=== PATIENT | female | born 1965 | race Caucasian/White ===

== ENCOUNTER → 2020-07-03 17:29 | Outpatient (CLI) | payer BC, SELFPAY ==
--- NOTE | ~2020-07-03 | XR_ITS ---
EXAMINATION: XR sacroiliac joints min 3V DATE: 07/03/2020 18:53 INDICATION: Sacroiliac joint pain TECHNIQUE: AP and left and right oblique views of the sacroiliac joints were obtained. COMPARISON: None. FINDINGS: Nonuniform joint space narrowing at the sacrum and joints, mild on the left and mild to moderate on t he right. No subarticular sclerosis or erosions at the sacral joints to suggest an inflammatory sacro iliitis. Sacral arches are intact. No fracture. Bilateral hip joint spaces are normal. Severe lower l umbar facet osteoarthritis. IMPRESSION: 1. Mild left and mild to moderate right sacroiliac osteoarthritis. Reviewed, dictated and finalized at location A. ALE SECURITY OFFICER
--- NOTE | ~2020-07-03 | MR_ITS ---
EXAMINATION: MR lumbar spine wo con DATE: 07/03/2020 18:23 INDICATION: Lumbar radiculopathy. TECHNIQUE: Magnetic resonance imaging (MRI) of the lumbar spine was performed without intravenous con trast. Sequences included sagittal T2-weighted FSE, sagittal T2-weighted FS FSE, sagittal T1-weighted FSE, and axial T2-weighted FSE. COMPARISON: Radiographs dated 07/03/2020 FINDINGS: 1 mm anterolisthesis L4 on L5 which is increased on the standing flexion and to lesser degree on the extension radiograph. See separate lumbar spine radiograph report for further detail. Vertebral body heights are normal. There are a few scattered T1 hyperintense hemangiomas, the largest at L4. Marrow signal is otherwise normal. Disc heights are normal with some disc desiccation, mild at L4-L5 and min imal at L3-L4 and L5-S1. The conus medullaris terminates at L1-L2. There is normal signal in the caud al spinal cord. Paravertebral soft tissues are unremarkable. The following disc levels are specifical ly discussed: T12-L1: Disc is minimally bulging. There is mild bilateral facet joint osteoarthritis. There is no ne ural foraminal stenosis. There is no central canal stenosis. L1-L2: Disc is minimally bulging. There is mild bilateral facet joint osteoarthritis. There is no smooth ral foraminal stenosis. There is no central canal stenosis. L2-L3: The disc does not extend beyond the endplate margin. There is mild left and minimal right face t joint osteoarthritis. There is no neural foraminal stenosis. There is no central canal stenosis. L3-L4: The disc does not extend beyond the endplate margin. There is minimal bilateral facet joint os teoarthritis. There is no neural foraminal stenosis. There is no central canal stenosis. L4-L5: The disc does not extend beyond the endplate margin. There is severe bilateral facet joint ost eoarthritis. There is mild bilateral neural foraminal stenosis. There is no central canal stenosis. L5-S1: The disc does not extend beyond the endplate margin. There is moderate right and mild left fac et joint osteoarthritis. There is no neural foraminal stenosis. There is no central canal stenosis. IMPRESSION: 1. Minimal anterolisthesis L4 on L5 which increases to 3 mm and 5 mm in the separately dictated and s tanding lateral extension and flexion radiographs respectively. Severe associated bilateral facet ost eoarthritis at this level. 2. Otherwise minimal to mild lumbar spondylosis. Reviewed, dictated and finalized at location A. HIDE INSPECTOR IMPRESSION: 1. Minimal anterolisthesis L4 on L5 which increases to 3 mm and 5 mm in the sep arately dictated and standing lateral extension and flexion radiographs respect ively. Severe associated bilateral facet osteoarthritis at this level. 2. Otherwise minimal to mild lumbar spondylosis.
--- NOTE | ~2020-07-03 | XR_ITS ---
EXAMINATION: XR lumbar spine 2-3V DATE: 07/03/2020 18:53 INDICATION: Lumbar radiculopathy with worsening right-sided low back pain. TECHNIQUE: Standing flexion and extension lateral views of the of the lumbar spine were obtained. COMPARISON: None FINDINGS: 5 mm anterolisthesis L4 on L5 which reduces to 3 mm with extension. Otherwise normal alignment in the lumbar spine. Vertebral body heights and disc heights are normal. Visualized posterior lung bases ar e clear with no pleural effusion. IMPRESSION: 1. 5 mm anterolisthesis L4 on L5 which reduces to 3 mm with extension. Reviewed, dictated and finalized at location A. GER IMMUNOLOGY
== END ==
PROVIDERS: PCP Physician Assistant; Visit Provider Nurse Practitioner Family
DX: M54.16 Radiculopathy, lumbar region (principal); M53.3 Sacrococcygeal disorders, not elsewhere classified
CPT/HCPCS: 72100; 72148; 72202

== ENCOUNTER 2021-08-18 08:21 | Emergency (ER) | payer OTHER, SELFPAY ==
[2021-08-18] VITALS (11 sets, daily range): BP systolic 146–180; BP diastolic 67–80; PULSE 77–95; RESP 10–29; TEMP 36.3; O2SAT 97–100
--- NOTE | ~2021-08-18 | CT_ITS ---
EXAMINATION: CT abdomen pelvis w con DATE: 08/18/2021 10:23 INDICATION: Right upper quadrant abdominal pain. Intermittent diarrhea. TECHNIQUE: Computed tomography (CT) of the abdomen and pelvis was performed with 100 mL Omnipaque 350 intravenous contrast. Automated exposure control and iterative reconstruction technique were employe d. The dose-length product was 1506.17 mGy-cm. COMPARISON: None. FINDINGS: The visualized portions of the lung bases demonstrate minimal atelectasis. No pleural effus ion. The heart size is normal. No pericardial effusion. The liver, gallbladder, pancreas, adrenal gla nds are normal. There is a gallstone in the gallbladder, which is normal in size. There is cortical t hinning in right kidney. There is a 4 mm nonobstructing right kidney stone. There is mild atrophy of left kidney. There are masses in the kidneys measuring up to 15 mm on the left measuring soft tissue attenuation. There is diverticulosis of the colon without evidence of diverticulitis. There are no di lated loops of bowel. The appendix is normal. There are no pathologically enlarged lymph nodes. There is no free intraperitoneal fluid. There is mild thoracolumbar spondylosis. IMPRESSION: 1. Cholelithiasis. No evidence of acute cholecystitis. 2. Bilateral kidney masses measuring up to 15 mm on the left, which may be hemorrhagic cysts, but pati plasm cannot be excluded. Abdomen MRI without and with contrast is recommended. Reviewed, dictated and finalized at location A. ERSMITH HELPER IMPRESSION: 1. Cholelithiasis. No evidence of acute cholecystitis. 2. Bilateral kidney masses measuring up to 15 mm on the left, which may be hemo rrhagic cysts, but neoplasm cannot be excluded. Abdomen MRI without and with co ntrast is recommended.
--- NOTE | ~2021-08-18 | US_ITS ---
EXAMINATION: US abdomen limited EXAM DATE: 08/18/2021 11:08 INDICATION: RUQ pain TECHNIQUE: Multiple grayscale and Doppler images of the abdomen right upper quadrant were obtained (kandace y a technologist who performed the scan) and subsequently reviewed. There is no prior study for brain perez. FINDINGS: The pancreatic head and body are normal in appearance. The pancreatic tail is not visualized. There is echogenic liver parenchyma, hepatic steatosis. There is focal fatty sparing of the gallbladder f [place]. There is no evidence of intrahepatic biliary duct dilation. Portal venous flow was seen in th e hepatopedal, normal direction and has normal Doppler waveform. No right-sided hydronephrosis. Common bile duct measures 6 mm, which is normal. The gallbladder wall is normal in thickness, with ex pected amount of distention. No sonographic evidence of pericholecystic fluid. Several gallstones i dentified. Technologist states patient did have sonographic Mcbride's sign. IMPRESSION: 1. Hepatic steatosis. 2. Cholelithiasis. Sonographic Mcbride's sign reported positive but without gallbladder wall thickeni ng, pericholecystic fluid or biliary/gallbladder distention. Consider HIDA scan if indicated clinical ly. Reviewed, dictated and finalized at location G. RATOR TENDER IMPRESSION: 1. Hepatic steatosis. 2. Cholelithiasis. Sonographic Mcbride's sign reported positive but without gal lbladder wall thickening, pericholecystic fluid or biliary/gallbladder distenti on. Consider HIDA scan if indicated clinically.
--- NOTE | 2021-08-18 09:06 | ECG_ITS ---
Measurements Intervals [place] Rate: 76 P: 41 [place]: 175 QRS: -14 QRSD: 82 T: 42 QT: 298 QTc: 337 Interpretive Statements SINUS RHYTHM LOW QRS VOLTAGE IN PRECORDIAL LEADS NONSPECIFIC T-WAVE ABNORMALITY NO PREVIOUS ECG AVAILABLE FOR COMPARISON Electronically Signed On 08-18-2021 12:29:00 CIGAR MAKING SUPERVISOR by Hamzah Hirsch M.D.
[2021-08-18 09:19] LABS: Basophils Absolute Auto 0.1 K/mm3 (0.0-0.1); Basophils Percent Auto 0.3 % (0.2-1.2); Eosinophils Absolute Auto 0.1 K/mm3 (0-0.3); Eosinophils Percent Auto 0.6 % (0-4.4); Hematocrit 38.8 % (37.0-47.0); Hemoglobin 12.7 g/dL (12.0-15.0); Immature Granulocyte Percent A 0.6 % (0-0.5); Lymphocytes Absolute Auto 1.88 K/mm3 (0.9-3.2); Lymphocytes Percent Auto 10.7 % (18.3-44.2); Mean Corpuscular HGB Conc 32.7 g/dl (32-36); Mean Corpuscular Hemoglobin 30.3 pg (26-34); Mean Corpuscular Volume 92.6 fl (80-100); Mean Platelet Volume 10.7 fl (7.4-10.4); Monocytes Absolute Auto 0.7 K/mm3 (0.1-0.6); Monocytes Percent Auto 3.8 % (2.6-8.5); Neutrophils Absolute Auto 14.7 K/mm3 (1.3-6.7); Platelet Count Result 286 k/mm3 (150-375); Red Blood Count 4.19 M/mm3 (4.2-5.4); White Blood Count 17.5 K/mm3 (4.5-10.0)
[2021-08-18 09:29] LABS: Prothrombin Time 12.4 Seconds (11.1-14.7)
[2021-08-18 09:30] LABS: Partial Thromboplastin Time 26.8 SECONDS (22.3-36.8)
[2021-08-18 09:32] LABS: D Dimer 0.38 ug/mL (<0.48)
--- NOTE | 2021-08-18 09:38 | ED.ABDPAIN ---
HPI - Abdominal Pain General Chief Complaint: Back Pain/Injury Stated Complaint: abd pain Time Seen by Provider: 08/18/21 09:06 Source: patient Mode of arrival: ambulatory Limitations: no limitations History of Present Illness HPI narrative: This is a 56-year-old female that presents to the emergency department for right upper quadrant pain ongoing over the last couple of months. Reports the pain is a constant dull ache. Worse after eating. Also worse with certain movements. The pain radiates into her back. Sometimes it is more sharp in nature. She has been taking anti-inflammatories with some relief in the pain. Reports episodes of diarrhea couple of weeks ago. No blood in the stool. Reports some nausea, but denies vomiting. Denies fever, cough, shortness of breath, or dysuria. Related Data Home Medications Medication Instructions Recorded Confirmed aspirin 81 mg tablet,delayed 81 mg PO DAILY 12/28/19 07/08/21 release cholecalciferol (vitamin D3) 25 25 mcg PO DAILY 12/28/19 07/08/21 mcg (1,000 unit) capsule diazepam 2 mg tablet 1 - 2 mg PO Q8H PRN tablet 12/28/19 07/08/21 diclofenac sodium 75 mg 75 mg PO BID PRN 12/28/19 07/08/21 tablet,delayed release multivitamin 1 tablet PO DAILY 12/28/19 07/08/21 nystatin 100,000 unit/gram topical 1 applic TOPICAL TID 12/28/19 07/08/21 powder omega-3 fatty acids 1,000 mg 1,000 mg PO DAILY 12/28/19 07/08/21 capsule Allergies Allergy/AdvReac Type Severity Reaction Status Date / Time lisinopril Allergy Severe Anaphylaxis Verified 08/18/21 08:56 KAITLYNN Inhibitors Allergy Mild Unknown Verified 08/18/21 08:56 azithromycin Allergy Mild rash, Verified 08/18/21 08:56 breathing problems moxifloxacin Allergy Mild rash, hives Verified 08/18/21 08:56 Review of Systems Review of Systems: CONSTITUTIONAL: Denies fever CARDIOVASCULAR: Reports chest pain. Denies edema. RESPIRATORY: Denies cough or dyspnea. GASTROINTESTINAL: Reports abdominal pain, nausea, and diarrhea. Denies vomiting GENITOURINARY: Denies dysuria All systems reviewed & are unremarkable except as noted in HPI and below PMFSH Past Medical History Medical History (Updated 08/18/21 @ 13:18 by Aundrea Tyler PA-C) Asthma Diabetes Hypertension Kidney disease RENA (obstructive sleep apnea) Surgical History Surgical History H/O: hysterectomy Social History Social History Second hand tobacco smoke exposure: No Alcohol intake: current Alcohol use details: rarely Substance use: never Exam Narrative: GENERAL: Well-appearing, well-nourished, and in no acute distress. HEAD: Normocephalic, atraumatic. EYES: EOMI. ENT: Mucous membranes moist. Oropharynx without tonsillar hypertrophy exudate or other lesions. CHEST: Clear to auscultation. No respiratory distress. No wheezes rales or rhonchi HEART: Regular rate and rhythm. No murmur heard. Normal peripheral pulses. ABDOMEN: Soft, nondistended, normal active bowel sounds. Tender to palpation in the right upper quadrant, without guarding. No CVA tenderness EXTREMITIES: Normal range of motion. No edema. SKIN: Warm, dry, no rash. NEURO: No focal deficits. Alert and oriented x3. PSYCH: Normal mood and affect Course Vital Signs Vital signs: Vital Signs Temperature 97.3 F L 08/18/21 08:23 Pulse Rate 95 08/18/21 08:23 Respiratory Rate 18 08/18/21 08:23 Blood Pressure 180/80 H 08/18/21 08:23 Pulse Oximetry 99 08/18/21 08:23 Temperature 97.3 F L 08/18/21 08:23 Pulse Rate 77 08/18/21 10:01 Respiratory Rate 29 H 08/18/21 09:30 Blood Pressure 146/71 H 08/18/21 09:17 Pulse Oximetry 99 08/18/21 10:19 MDM - Abdominal Pain MDM Narrative Medical decision making narrative: Patient presents to the emergency department for ongoing right upper quadrant pain over the last couple of months. Blood pr
[2021-08-18 09:41] LABS: Alanine Aminotransferase 32 U/L (4-35); Albumin Level 4.3 g/dL (3.5-5.1); Alkaline Phosphatase 97 U/L (38-126); Anion Gap 5 mmol/L (8-16); Aspartate Amino Transferase 36 U/L (14-36); Bilirubin,Total 1.2 mg/dL (0.2-1.3); Blood Urea Nitrogen 23 mg/dL (7-17); Calcium 9.4 mg/dL (8.4-10.2); Carbon Dioxide 29 mmol/L (22-30); Chloride 101 mmol/L (98-107); Estimated CRCL calculation 52 ml/min; Estimated Glomerular Filt Rate 39; Glucose 259 mg/dL (65-110); Lipase 211 U/L (23-300); Potassium 4.2 mmol/L (3.4-5.0); Sodium 135 mmol/L (137-145)
[2021-08-18 09:42] LABS: Troponin I < 0.012 ng/mL (0.000-0.034)
[2021-08-18] MEDS: PANTOPRAZOLE SODIUM IV 40 MG VIAL IV PUSH (09:54)
[2021-08-18] MEDS: ONDANSETRON INJ 4 MG/2 ML VIAL IV PUSH (09:55)
[2021-08-18 11:35] LABS: Add Urine Microscopic? YES; Appearance Urine Clear (Clear); Bilirubin Urine Negative (Negative); Blood Urine Negative (Negative); Color Urine Yellow (Yellow); Glucose Urine UA 1+ mg/dL (Negative); Ketones Urine Negative (Negative); Leukocyte Esterase Ur Negative LEU/UL (Negative); Mucus Urine Rare /lpf; Nitrate Urine Negative (Negative); Protein Urine 2+ mg/dL (Negative); RBC Urine 0-2 /hpf (0-2); Squamous Epithelial Cell Urine Moderate /hpf (Few); Urobilinogen Urine Negative mg/dL (<2.0); WBC Urine 0-3 /hpf
[2021-08-18 11:39] LABS: Specific Grav Ur 1.051 (1.001-1.035)
== END 2021-08-18 13:55 | disposition home or self-care (01) ==
PROVIDERS: Physician Assistant; Emergency Provider Emergency Medicine; PCP Physician Assistant
DX: K80.50 Calculus of bile duct without cholangitis or cholecystitis without obstruction (principal); N28.1 Cyst of kidney, acquired; J45.909 Unspecified asthma, uncomplicated; E11.9 Type 2 diabetes mellitus without complications; I10 Essential (primary) hypertension; N28.9 Disorder of kidney and ureter, unspecified; G47.33 Obstructive sleep apnea (adult) (pediatric); K76.0 Fatty (change of) liver, not elsewhere classified; Z79.82 Long term (current) use of aspirin; Z79.899 Other long term (current) drug therapy; Z79.84 Long term (current) use of oral hypoglycemic drugs
CPT/HCPCS: 36415; 74177; 76705; 80053; 81001; 81025; 83690; 84484; 85025; 85380; 85610; 85730; 93005; 96374; 96375; 99284; C9113; J0131; J2405; Q9967

== ENCOUNTER 2021-08-25 13:08 | Outpatient (RCR) | payer OTHER, SELFPAY ==
[2021-08-25 13:08] VITALS: BMI 48.2
[2021-08-25 13:39] VITALS: BMI 48.2
== END 2021-10-01 13:54 | disposition home or self-care (01) ==
LOC: ANHDMC 13:08
PROVIDERS: PCP Physician Assistant; Visit Provider Internal Medicine Endocrinology, Diabetes & Metabolism
DX: E11.9 Type 2 diabetes mellitus without complications (principal); Z71.3 Dietary counseling and surveillance
CPT/HCPCS: 97802

== ENCOUNTER 2021-08-29 09:12 | Outpatient (CLI) | payer OTHER, SELFPAY ==
[2021-08-29 09:34] LABS: Basophils Percent Auto 0.3 % (0.2-1.2); Eosinophils Absolute Auto 0.3 K/mm3 (0-0.3); Eosinophils Percent Auto 2.9 % (0-4.4); Hematocrit 40.9 % (37.0-47.0); Hemoglobin 13.1 g/dL (12.0-15.0); Immature Granulocyte Absolute 0.05 K/mm3 (0.00-0.031); Immature Granulocyte Percent A 0.5 % (0-0.5); Lymphocytes Percent Auto 25.7 % (18.3-44.2); Mean Corpuscular Volume 93.8 fl (80-100); Mean Platelet Volume 10.8 fl (7.4-10.4); Monocytes Absolute Auto 0.7 K/mm3 (0.1-0.6); Monocytes Percent Auto 6.6 % (2.6-8.5); Neutrophils Absolute Auto 6.7 K/mm3 (1.3-6.7); Platelet Count Result 318 k/mm3 (150-375); Red Blood Count 4.36 M/mm3 (4.2-5.4); Red Cell Distribution Width 14.3 % (11.5-14.5); White Blood Count 10.5 K/mm3 (4.5-10.0)
[2021-08-29 09:47] LABS: Alanine Aminotransferase 25 U/L (4-35); Albumin Level 4.3 g/dL (3.5-5.1); Alkaline Phosphatase 92 U/L (38-126); Anion Gap 8 mmol/L (8-16); Aspartate Amino Transferase 27 U/L (14-36); Bilirubin,Total 1.1 mg/dL (0.2-1.3); Blood Urea Nitrogen 28 mg/dL (7-17); Calcium 8.7 mg/dL (8.4-10.2); Carbon Dioxide 27 mmol/L (22-30); Chloride 101 mmol/L (98-107); Estimated Glomerular Filt Rate 42; Glucose 212 mg/dL (65-110); Sodium 136 mmol/L (137-145)
== END 2021-08-29 09:13 | disposition home or self-care (01) ==
PROVIDERS: PCP Physician Assistant; Visit Provider Surgery
DX: K80.10 Calculus of gallbladder with chronic cholecystitis without obstruction (principal)
CPT/HCPCS: 36415; 80053; 85025

== ENCOUNTER 2021-08-31 00:34 | Day surgery (SDC) | payer OTHER, SELFPAY ==
[2021-08-27 08:32] VITALS: BMI 48.0
--- NOTE | 2021-08-27 08:49 | PC.NURSE ---
Report to the Outpatient Waiting Room, entrance under the green pavilion located off [facility], at time __1100 on date _08/31/2021 . OR Time: _1300 . - You and your visitor will be asked a series of questions to screen for COVID 19 for your protection. - A mask is required within the hospital. Preoperative COVID Testing Requirements: No COVID Test needed if: (proof is required; if not received patient will have Rapid Test prior to entry) - Patient has received COVID Vaccine at least 14 days prior to procedure date Patients may have clear liquids (water, carbonated beverages, clear teas, apple juice) until 3 hours prior to surgery with a maximum of 20 ounces. - No food from midnight until time of surgery - Infants may have breast milk until 4 hours before surgery, formula 6 hours prior to surgery. - Children will be allowed to drink immediately following surgery. If applicable, please bring a bottle or sippy cup to assist with drinking. Juice, water, soda, and popsicles are readily available. For infants on formula, please bring formula the day of surgery. Pacifiers are allowed. Take the following medications with a SIP of water the morning of surgery: Verapamil Medications to discontinue per physician __ASA stopped 08/[address] Limon; Vitamins/supplements 3 days prior Date to take last dose Please no make-up, nail mauritanian, hairspray, perfume, deodorant, or body powder the day of surgery. No jewelry (including any body piercings) or valuables the day of surgery, leave them at home. Please take a shower or bath the night before, or the morning of, surgery with an antibacterial soap. Wear comfortable, loose fitting clothing. Children are encouraged to wear pajamas. - Jewelry must be removed prior to entering the operating room. Rings and piercings that are not removed may be cut off. - The hospital will not accept responsibility for valuables. - Please leave all valuables, including medications, at home the day of surgery. If you are going home after surgery, a licensed form setter/driver must drive you home. - NO public transportation without another adult. - We recommend that an adult stay with you for 24 hours following discharge. - We also recommend that you do not drive, make important decision, drink alcoholic beverages, or take any drugs that were not prescribed by your health care provider for at least 24 hours after your discharge time. One visitor will be allowed to accompany the patient into the hospital. Patients visitor will be instructed to remain with patient at all times or leave the building. We will allow the visitor to come back to the postoperative area when patient is ready. Follow any additional instructions given to you from your surgeon. Telephone instructions given to patient____and asked if any additional questions and then verbalized understanding. Patient advised to call surgeon office or pre surgery nurseBarbie liaison [phone] if any additional questions.
--- NOTE | 2021-08-28 10:18 | WPDANESEPPF ---
Anes - Initial Pre Proc Eval Procedure: Operation Date: 08/31/21 13:00 Proposed Procedures p Laparoscopic Cholecystectomy with Intraoperative Cholangiogram, Possible Open - Alexandre Limon MD Date/Time: 08/28/21 10:18 Surgeon: Alexandre Limon MD Pre Op Diagnosis: Chronic Cholecystitis with Cholelithiasis Patient Data Age: 56 Gender: F Height: 1.63 m Weight: 127.01 kg Allergies Allergy/AdvReac Type Severity Reaction Status Date / Time lisinopril Allergy Severe Anaphylaxis Verified 08/27/21 08:25 KAITLYNN Inhibitors Allergy Mild MADE Verified 08/27/21 08:25 CHEST FEEL HARD AFTER 1 WEEK moxifloxacin Allergy Mild MADE MY Verified 08/27/21 08:25 SKIN TURN RED azithromycin AdvReac Mild Rash Verified 08/27/21 08:25 Home Medications Medication Instructions Recorded Confirmed Type aspirin 81 mg tablet,delayed 81 mg PO DAILY 12/28/19 08/27/21 History release cholecalciferol (vitamin D3) 25 25 mcg PO DAILY 12/28/19 08/27/21 History mcg (1,000 unit) capsule diclofenac sodium 75 mg 75 mg PO BID PRN 12/28/19 08/27/21 History tablet,delayed release montelukast 10 mg tablet 10 mg PO DAILY #90 tablet 12/28/19 08/27/21 Rx multivitamin 1 tablet PO DAILY 12/28/19 08/27/21 History nystatin 100,000 unit/gram topical 1 applic TOPICAL TID PRN 12/28/19 08/27/21 History powder fluticasone propionate 50 2 spray NASAL DAILY #15.8 ml 05/16/20 08/27/21 Rx mcg/actuation nasal spray,suspension verapamil 120 mg tablet,extended 120 mg PO BID #180 tablet 01/19/21 08/27/21 Rx release spironolactone 25 mg tablet 25 mg PO DAILY #90 tablet 03/20/21 08/27/21 Rx losartan 100 mg tablet 100 mg PO DAILY #90 tablet 05/08/21 08/27/21 Rx semaglutide 1 mg/dose (4 mg/3 mL) 1 mg SUBCUT WEEKLY 30 Days #1 syr 06/02/21 08/27/21 Rx subcutaneous pen injector atorvastatin 20 mg tablet 20 mg PO DAILY #90 tablet 07/05/21 08/27/21 Rx albuterol sulfate 90 mcg/actuation 2 puff INHALATION Q4-6H PRN #8.5 gm 07/06/21 08/27/21 Rx aerosol inhaler glipizide 10 mg tablet, extended 10 mg PO DAILY #90 tablet 07/10/21 08/27/21 Rx release 24 hr hydrocodone-acetaminophen 1 tablet PO Q8H PRN #20 tablet 08/18/21 08/27/21 Rx ondansetron 4 mg PO Q8H PRN #10 tablet 08/18/21 08/27/21 Rx coenzyme Q10 [CoQ-10] 100 mg PO DAILY 08/27/21 08/27/21 History Patient hx anesthesia problems: none Family hx anesthesia problems: none Results Review: All pre-operative results and documents have been reviewed as part of the pre-operative evaluation. [facility] Past Medical History Medical History (Updated 08/26/21 @ 08:38 by Giana Walter) Asthma Diabetes Hypertension Kidney disease RENA (obstructive sleep apnea) Surgical History Surgical History H/O: hysterectomy Family History Family History Father Heart disease Hypertension Diabetes mellitus Kidney disease Mother Diabetes mellitus Hypertension Uterine cancer Other Ovarian cancer Other Lung cancer Grandparent Diabetes mellitus Social History Social History Smoking status: Never smoker Second hand tobacco smoke exposure: No Alcohol intake: never Alcohol use details: rarely Substance use: never Living arrangements: alone Additional occupation/education comments: Counselor Spiritual care concerns: No Anes - Eval Final PreProcedure Day of Procedure 08/28/21 10:18 Patient weight: morbidly obese Heart: regular rate and rhythm Lungs: clear to auscultation and normal air movement Airway: Mallampati scale class III Neurological: alert and oriented Last oral intake: >/= 8 hours ASA classification: III Emergent: no Anesthetic plan: proceed Anesthesia type and monitoring: general GIVS and standard monitoring Results Review: All pre-operative results and documents
[2021-08-31] VITALS (10 sets, daily range): BP systolic 136–175; BP diastolic 50–81; PULSE 63–80; RESP 12–16; TEMP 36.5–36.8; O2SAT 94–100
[2021-08-31] MEDS: KETOROLAC 15 MG/ML VIAL (*BKC) IV PUSH (13:11)
[2021-08-31] MEDS: LACTATED RINGERS 1,000 ML 30 ML IV CONT ×2 (13:11→16:08)
[2021-08-31] MEDS: ACETAMINOPHEN 500 MG TABLET 1000 MG PO (13:11)
[2021-08-31 13:29] LABS: Glucose Point of Care 125 mg/dl (65-105)
[2021-08-31 13:29] LABS: Amylase 141 U/L (30-110); Lipase 282 U/L (23-300)
--- NOTE | 2021-08-31 14:01 | WPDHPUPDATE1 ---
History and Physical Update Update Date/Time: 08/31/21 14:01 History and Physical has been reviewed, including an updated exam of the patient. There are NO changes in the patient's condition. Risks, benefits, and alternatives have been discussed and questions answered. Patient agrees to proceed with procedure.
[2021-08-31] MEDS: ceFAZolin 3 GM/D5W 100 ML 100 ML IVPB (14:08)
[2021-08-31] MEDS: BUPIVACAINE/EPINEPHRINE 0.25% 10 ML VIAL 30 ML INFILTRATE (14:51)
[2021-08-31 16:16] LABS: Glucose Point of Care 141 mg/dl (65-105)
[2021-08-31] MEDS: ONDANSETRON INJ 4 MG/2 ML VIAL IV PUSH (16:34)
--- NOTE | 2021-08-31 16:38 | W.PM.PROC2 ---
Procedure Note - Detailed Date of Procedure 08/31/21 Pre-op Diagnosis Chronic Cholecystitis with Cholelithiasis Post-op Diagnosis Same Procedure Performed Laproscopic Cholecystectomy Surgeon Alexandre Limon MD [employer]apons Crewmember Jodee MELENDEZ.OR surgical first assistant Anesthesia General Indications Patient has been having increased number in severity of episodes of epigastric and right upper quadrant pain. She recently had an ultrasound which showed definite stones in the gallbladder. Therefore, she is felt to be a candidate for laparoscopic cholecystectomy. Findings Patient had a soft otherwise unremarkable gallbladder but there were significant adhesions from the distal end of the gallbladder all the way down to its neck. These were mainly filmy omental adhesions. Description of Procedure Patient was seen preoperatively in the holding area and risks, benefits and alternatives confirmed. Patient was taken to the operating room and general anesthesia was induced. A time out was then preformed with the surgery team confirming patient and site of surgery. The abdomen was prepped and draped in the usual sterile fashion. Incision was made just below the umbilicus with an 11 blade knife. I placed 2 stay sutures of O- Vicryl on either side of the mid-line fascia beneath the umbilicus and was then able to slide in the Ingram cannula through the fascial defect into the peritoneum. First under low flow and then under high flow the abdomen was insufflated with carbon dioxide never exceeding a pressure of 14. Three 5 mm trocars were then introduced under direct vision. The following trocars were introduced under direct vision: a 5 mm in the epigastrium and two 5 mm trocars along the right costal margin laterally in the subcostal area. There were significant omental adhesions to the underside of the gallbladder. These were taken down with blunt and sharp dissection using some Bovie cautery for hemostasis. We were able to dissect this completely away from the neck of the gallbladder. I then carefully used the L-shaped cautery and the [place] dissector to dissect out the triangle of [place]. I then was able to dissect out both the cystic duct and cystic artery and identify a window of safety. The gall bladder was grasped and the cystic duct and artery were dissected free and clipped with an 5 mm endo-clip range manager. The cystic duct and artery were clipped with use of 2 clips on the patient's side 1 on the gallbladder side utilizing a 5 mm endoclip-range manager. The cystic duct was then transected. The cystic artery was also transected at this point. The gall bladder was removed using electrocautery and then removed from the abdomen using a large 10 mm grasper via the umbilical incision. The trocars were removed visualizing hemostasis and the remaining gas evacuated. The large trocar site at the umbilicus was closed with use of the 2 stay sutures of 0 Vicryl mentioned above and also a figure of 8 O-Vicryl suture. The 2 stay sutures mentioned above on either side of the fascia were also tied together to help approximate this midline fascia. Further local anesthetic was placed into each incision for postop pain control. The skin incisions were closed with subcuticular suture of 4-0 Monocryl. Surgical glue then was applied to all the incisions. Was a palpable stone within the gallbladder upon removal. Patient tolerated the procedure well was taken to the recovery room in good condition. Implants none Estimated Blood Loss -20.0 Drains No Packing No Pathology Yes (Gallbladder) Complications No immediate complications Condition Stable Disposition PACU
== END 2021-08-31 18:31 | disposition home or self-care (01) ==
PROVIDERS: PCP Physician Assistant; Visit Provider Surgery
PROC: 0FT44ZZ Resection of Gallbladder, Percutaneous Endoscopic Approach (ICD-10-PCS; CPT 47562; principal; 2021-08-31 14:00)
DX: K80.10 Calculus of gallbladder with chronic cholecystitis without obstruction (principal); J45.909 Unspecified asthma, uncomplicated; E11.9 Type 2 diabetes mellitus without complications; I10 Essential (primary) hypertension; G47.33 Obstructive sleep apnea (adult) (pediatric); N28.9 Disorder of kidney and ureter, unspecified; E66.01 Morbid (severe) obesity due to excess calories; Z68.42 Body mass index [BMI] 45.0-49.9, adult; Z79.82 Long term (current) use of aspirin; Z79.899 Other long term (current) drug therapy; Z79.51 Long term (current) use of inhaled steroids; Z79.84 Long term (current) use of oral hypoglycemic drugs
CPT/HCPCS: 47562; 36415; 82150; 82948; 83690; 88304; A9270; J0330; J0690; J1100; J1885; J2250; J2405; J2704; J2710; J3010; J7120; Q9966

== ENCOUNTER → 2021-10-23 12:52 | Outpatient (CLI) | payer OTHER, SELFPAY ==
--- NOTE | ~2021-10-23 | MR_ITS ---
EXAMINATION: MR abdomen wo/w con INDICATION: Bilateral kidney masses TECHNIQUE: Coronal SSFSE ARC, WATER:coronal LAVA-FLEX, Coronal 2D FIESTA FatSat, Axial SSFSE BH ARC, Axial 3D DualEcho BH, Axial SSFSE-IR, Axial DWI b=500, Axial 2D FIESTA FatSat, pre and dynamic postco ntrast Axial LAVA ARC, postcontrast Coronal In and Opposed phase LAVA FLEX COMPARISON: 08/18/2021 CONTRAST: Multihance, 20 cc FINDINGS: The gallbladder is surgically absent. The liver, spleen, pancreas, and adrenal glands are n ormal. There is mild atrophy of the left kidney. There are lesions measuring 10 mm in the right kidne y and 11 mm and 10 mm in the left kidney upper pole. These are mildly T1 hypointense and mildly T2 hy perintense. None demonstrate enhancement after contrast administration. There are no pathologically e nlarged abdominal lymph nodes. There are no dilated loops of bowel. IMPRESSION: 1. Bilateral kidney masses with MRI features consistent with proteinaceous cysts. No suspicious kidne y mass identified. Reviewed, dictated and finalized at location B. IMPRESSION: 1. Bilateral kidney masses with MRI features consistent with proteinaceous cyst s. No suspicious kidney mass identified.
[2021-10-23 13:36] LABS: Estimated Glomerular Filt Rate 46
== END ==
PROVIDERS: PCP Physician Assistant; Visit Provider Physician Assistant
DX: N28.89 Other specified disorders of kidney and ureter (principal)
CPT/HCPCS: 74183; A9577

== ENCOUNTER → 2022-01-30 10:57 | Outpatient (CLI) | payer OTHER, SELFPAY ==
--- NOTE | ~2022-01-30 | MM_ITS ---
EXAMINATION: MM screening shorty BI w nalini HISTORY: Screening mammogram TECHNIQUE: Craniocaudal and mediolateral oblique 3-D tomosynthesis images were obtained and synthetic 2-D images were generated. CAD analysis was submitted and interpreted. COMPARISON: November 01, 2007 bilateral screening mammogram BREAST PARENCHYMAL COMPOSITION: There are scattered areas of fibroglandular density. FINDINGS: There is no evidence of suspicious mass, calcification, or architectural distortion to sugg est malignancy in either breast. There has been no suspicious interval change. IMPRESSION: 1. No mammographic evidence of malignancy. 2. Recommend routine screening mammography in one year. BI-RADS Category 1: Negative Reviewed, dictated and finalized at location A.
== END ==
PROVIDERS: PCP Internal Medicine; Visit Provider Physician Assistant
DX: Z12.31 Encounter for screening mammogram for malignant neoplasm of breast (principal)
CPT/HCPCS: 77063; 77067

== ENCOUNTER → 2022-03-27 09:31 | Outpatient (CLI) | payer OTHER, SELFPAY ==
--- NOTE | ~2022-03-27 | XR_ITS ---
XR foot RT 2V, XR foot LT 2V 03/27/2022 10:13 Indication: Chronic joint pain Procedure: 2 views each foot Comparison: No prior studies for comparison. Findings: There is anatomic alignment. No acute fracture, subluxation or dislocation. Lisfranc joint intact bilaterally. Small degenerative calcaneal enthesophyte at the plantar surface on the left. No erosive changes. No significant joint space narrowing. No focal soft tissue abnormality. No foreign b odies. Impression: 1: No significant bone or joint abnormality. Reviewed, dictated and finalized at location A. Impression: 1: No significant bone or joint abnormality. Impression: 1: No significant bone or joint abnormality.
--- NOTE | ~2022-03-27 | XR_ITS ---
XR hand RT 2V, XR hand LT 2V 03/27/2022 10:13 Indication: Chronic joint pain Procedure: 2 views of the each hand Comparison: No prior studies for comparison. Findings: There is moderate bilateral osteoarthritis of the first carpal metacarpal joints. There is mild polyarticular osteoarthritis of the interphalangeal joints and triscaphe joints. No fracture or traumatic malalignment. No significant soft tissue abnormality. No foreign bodies. 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 Reviewed, dictated and finalized at location A. 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
== END ==
PROVIDERS: PCP Physician Assistant; Visit Provider Physician Assistant Medical
DX: M25.50 Pain in unspecified joint (principal); G89.29 Other chronic pain; R76.8 Other specified abnormal immunological findings in serum; R53.83 Other fatigue; M19.042 Primary osteoarthritis, left hand; M19.041 Primary osteoarthritis, right hand
CPT/HCPCS: 73120; 73620

== ENCOUNTER 2022-06-15 00:44 | Day surgery (SDC) | payer OTHER, SELFPAY ==
[2022-05-10 08:27] VITALS: BMI 47.7
[2022-06-15 07:07] LABS: Glucose Point of Care 127 mg/dl (65-105)
[2022-06-15 07:09] VITALS: BP 146/85; PULSE 73; RESP 18; TEMP 36; O2SAT 100
[2022-06-15] MEDS: LACTATED RINGERS 1,000 ML 150 ML IV CONT (07:12)
--- NOTE | 2022-06-15 07:52 | WPDANESEPPF ---
Anes - Initial Pre Proc Eval Procedure: Operation Date: 06/15/22 08:30 Proposed Procedures p Screening Colonoscopy - Mahin Burns MD Date/Time: 06/15/22 07:52 Surgeon: Mahin Burns MD Pre Op Diagnosis: neoplasm screening Patient Data Age: 57 Gender: F Height: 1.63 m Weight: 122.1 kg Last Vital Signs Temp 96.8 F L 06/15/22 07:09 Pulse 73 06/15/22 07:09 Resp 18 06/15/22 07:09 BP 146/85 H 06/15/22 07:09 Pulse Ox 100 06/15/22 07:09 O2 Del Method Room Air 06/15/22 07:09 Allergies Allergy/AdvReac Type Severity Reaction Status Date / Time lisinopril Allergy Severe Anaphylaxis Verified 06/15/22 07:07 KAITLYNN Inhibitors Allergy Mild MADE Verified 06/15/22 07:07 CHEST FEEL HARD AFTER 1 WEEK moxifloxacin Allergy Mild MADE MY Verified 06/15/22 07:07 SKIN TURN RED azithromycin AdvReac Mild Rash Verified 06/15/22 07:07 Home Medications Medication Instructions Recorded Confirmed Type aspirin 81 mg tablet,delayed 81 mg PO DAILY 12/28/19 06/15/22 History release (Adult Low Dose Aspirin) multivitamin (Multiple Vitamins 1 tablet PO DAILY 12/28/19 06/15/22 History tablet) nystatin 100,000 unit/gram topical 1 applic topical TID PRN YEAST 12/28/19 06/15/22 History powder INFECTION ondansetron 4 mg disintegrating 4 mg PO Q8H PRN nausea and 08/18/21 06/15/22 Rx tablet vomiting #10 tabs coenzyme Q10 100 mg capsule 100 mg PO DAILY 08/27/21 06/15/22 History (CoQ-10) verapamil 120 mg tablet,extended 120 mg PO BID #180 tabs 10/12/21 06/15/22 Rx release blood sugar diagnostic (OneTouch #200 ea 10/15/21 05/17/22 Rx Verio test strips) lancets 33 gauge (OneTouch Delica #200 ea 10/15/21 05/17/22 Rx Lancets) glipizide 10 mg tablet, extended 10 mg PO DAILY #90 tabs 01/08/22 06/15/22 Rx release 24 hr cholecalciferol (vitamin D3) 25 25 mcg PO DAILY 01/13/22 06/15/22 History mcg (1,000 unit) capsule fluticasone propionate 50 2 spray intranasal DAILY PRN 01/13/22 06/15/22 History mcg/actuation nasal Allergy Symptoms spray,suspension (Flonase Allergy Relief) semaglutide 2 mg/dose (8 mg/3 mL) 2 mg subcut WEEKLY 01/13/22 06/15/22 History subcutaneous pen injector (Ozempic) spironolactone 25 mg tablet 25 mg PO DAILY #90 tabs 03/15/22 06/15/22 Rx atorvastatin 20 mg tablet 20 mg PO DAILY #90 tabs 04/04/22 06/15/22 Rx montelukast 10 mg tablet 10 mg PO DAILY #90 tabs 04/05/22 06/15/22 Rx (Singulair) hydroxychloroquine 200 mg tablet 200 mg PO BID 04/14/22 06/15/22 History losartan 100 mg tablet 100 mg PO DAILY #90 tabs 04/30/22 06/15/22 Rx Laboratory Tests 06/15/22 07:04 POC Capillary Glucose 127 mg/dl H mg/dl (65-105) Patient hx anesthesia problems: none Family hx anesthesia problems: none Results Review: All pre-operative results and documents have been reviewed as part of the pre-operative evaluation. [facility] Past Medical History Medical History Arthritis Asthma CCC (chronic calculous cholecystitis) Chronic kidney disease Diabetes High thyroid stimulating hormone (TSH) level Hyperlipidemia LDL goal <100 Hypertension Morbid obesity with BMI of 45.0-49.9, adult RENA (obstructive sleep apnea) Transaminitis Type 2 diabetes mellitus Surgical History Surgical History H/O: hysterectomy Hx laparoscopic cholecystectomy 08/31/2021- laparoscopic cholecystectomy Family History Family History Father Heart disease Hypertension Diabetes mellitus Kidney disease Mother Diabetes mellitus Hypertension Uterine cancer Other Ovarian cancer Other Lung cancer Grandparent Diabetes mellitus Social History Social History Smoking status: Never smoker
--- NOTE | 2022-06-15 08:24 | PM.HPGS ---
History of Present Illness History of Present Illness Consent: Risks, benefits, and alternatives have been discussed and questions answered. Patient agrees to proceed with procedure. Chief complaint: neoplasm screening Narrative: Scarlett Chaves is a 57 year old female here for first screening colonoscopy Review of Systems Constitutional: Constitutional: Denies headache(s) and Denies weakness Eyes: Eyes: Denies blurry vision ENT: Reports Normal hearing present, Denies headache(s) and Denies neck pain Cardiovascular: Cardiovascular: Denies chest pain and Denies dyspnea Respiratory: Respiratory: Denies dyspnea Gastrointestinal: Gastrointestinal: Reports no additional gastrointestinal complaints Genitourinary: Genitourinary: Denies dysuria Musculoskeletal: Musculoskeletal: Denies neck pain Integumentary/Breasts: Skin/Breast: Denies dry skin Neurologic: Reports Normal hearing present, Denies headache(s) and Denies weakness Psychiatric: Psychiatric: Denies anxiety Endocrine: Endocrine: Denies change in body appearance Hematologic/Lymphatic: Hematologic/Lymphatic: Denies easy bleeding Allergic/Immunologic: Allergic/Immunologic: Denies urticaria [facility] Past Medical History Medical History (Updated 06/15/22 @ 08:25 by Mahin Burns MD) Arthritis Asthma CCC (chronic calculous cholecystitis) Chronic kidney disease Colon cancer screening Diabetes High thyroid stimulating hormone (TSH) level Hyperlipidemia LDL goal <100 Hypertension Morbid obesity with BMI of 45.0-49.9, adult RENA (obstructive sleep apnea) Transaminitis Type 2 diabetes mellitus Surgical History Surgical History H/O: hysterectomy Hx laparoscopic cholecystectomy 08/31/2021- laparoscopic cholecystectomy Family History Family History Father Heart disease Hypertension Diabetes mellitus Kidney disease Mother Diabetes mellitus Hypertension Uterine cancer Other Ovarian cancer Other Lung cancer Grandparent Diabetes mellitus Social History Social History Smoking status: Never smoker Second hand tobacco smoke exposure: No Alcohol intake: current Alcohol use details: rare Substance use: never Substance use type: does not use Lack of Transportation: No Lack of Food: Never True Current Housing: I Have Housing Concerned About Future Housing: No Difficulty Paying Gas/Electric Bills: No Difficulty Paying for Meds: No Currently Unemployed: No Education: Master's Degree or Higher Difficulty w/ Childcare or Family Care: No Living arrangements: alone Additional occupation/education comments: Counselor Spiritual care concerns: No Meds Home Medications and Allergies Home Medications Medication Instructions Recorded Confirmed Type aspirin 81 mg tablet,delayed 81 mg PO DAILY 12/28/19 06/15/22 History release (Adult Low Dose Aspirin) multivitamin (Multiple Vitamins 1 tablet PO DAILY 12/28/19 06/15/22 History tablet) nystatin 100,000 unit/gram topical 1 applic topical TID PRN YEAST 12/28/19 06/15/22 History powder INFECTION ondansetron 4 mg disintegrating 4 mg PO Q8H PRN nausea and 08/18/21 06/15/22 Rx tablet vomiting #10 tabs coenzyme Q10 100 mg capsule 100 mg PO DAILY 08/27/21 06/15/22 History (CoQ-10) verapamil 120 mg tablet,extended 120 mg PO BID #180 tabs 10/12/21 06/15/22 Rx release blood sugar diagnostic (OneTouch #200 ea 10/15/21 05/17/22 Rx Verio test strips) lancets 33 gauge (OneTouch Delica #200 ea 10/15/21 05/17/22 Rx Lancets) glipizide 10 mg tablet, extended 10 mg PO DAILY #90 tabs 01/08/22 06/15/22 Rx release 24 hr cholecalciferol (vitamin D3) 25 25 mcg PO DAILY 01/13/22 06/15/22 History mcg (1,000 unit) capsule fluticasone propionate 50 2 spray intra
[2022-06-15 08:45] VITALS: BP 124/61; PULSE 71; RESP 21; O2SAT 98
[2022-06-15 08:55] VITALS: BP 121/71; PULSE 68; RESP 19; O2SAT 100
[2022-06-15 09:05] VITALS: BP 124/65; PULSE 70; RESP 20; O2SAT 100
== END 2022-06-15 09:15 | disposition home or self-care (01) ==
PROVIDERS: PCP Physician Assistant; Visit Provider Internal Medicine Gastroenterology
PROC: 0DJD8ZZ Inspection of Lower Intestinal Tract, Via Natural or Artificial Opening Endoscopic (ICD-10-PCS; CPT 45378; principal; 2022-06-15 08:30)
DX: Z12.11 Encounter for screening for malignant neoplasm of colon (principal); D12.0 Benign neoplasm of cecum; K57.30 Diverticulosis of large intestine without perforation or abscess without bleeding; K64.8 Other hemorrhoids; I12.9 Hypertensive chronic kidney disease with stage 1 through stage 4 chronic kidney disease, or unspecified chronic kidney disease; E11.22 Type 2 diabetes mellitus with diabetic chronic kidney disease; N18.9 Chronic kidney disease, unspecified; E78.5 Hyperlipidemia, unspecified; J45.909 Unspecified asthma, uncomplicated; G47.33 Obstructive sleep apnea (adult) (pediatric); E66.01 Morbid (severe) obesity due to excess calories; Z68.42 Body mass index [BMI] 45.0-49.9, adult; Z79.82 Long term (current) use of aspirin; Z79.84 Long term (current) use of oral hypoglycemic drugs; Z79.899 Other long term (current) drug therapy
CPT/HCPCS: 45385; 82948; 88305; J2704; J7120

== ENCOUNTER → 2022-12-22 12:33 | Outpatient (CLI) | payer OTHER, SELFPAY ==
--- NOTE | ~2022-12-22 | MR_ITS ---
EXAMINATION: MRI SACRUM W/O CONTRAST DATE: 12/22/2022 14:33 INDICATION: Chronic sacroiliac joint pain TECHNIQUE: Magnetic resonance imaging (MRI) of the sacrum and coccyx was performed without and with 2 0 mL Multihance intravenous contrast. Sequences included full-field of view sequences of the pelvis including axial T1-weighted FSE, T1-weighted FS FSE, T2-weighted FS FSE and postcontrast T1-weighted FS FSE and smaller field of view sequences of the bilateral sacral iliac joints including sagittal PD -weighted FSE; oblique axial T1-weighted FSE and T2-weighted FS FSE; oblique coronal T2-weighted FSE, T1-weighted FSE and T2-weighted FS FSE and postcontrast axial and coronal T1-weighted FS FSE. COMPARISON: None. FINDINGS: Normal bone marrow signal throughout. No fracture or pathologic marrow replacing process. Mild osteoa rthritis at the bilateral sacroiliac joints. No abnormal fluid signal, synovial enhancement or erosio ns along the bilateral sacroiliac joints to suggest an inflammatory sacroiliitis. Moderate osteoarthr itis at the bilateral facet joints at L4-L5 and L5-S1. Partial tears at the superolateral facets of t he bilateral gluteus medius tendons with retraction of the myotendinous junctions. There is associate d mild enhancing left gluteus medius medius bursitis. The uterus is not identified and has likely bee n surgically resected. No pathologically enlarged pelvic or inguinal lymphadenopathy. Small fat-conta ining umbilical hernia. IMPRESSION: 1. Mild bilateral sacral erect osteoarthritis. No findings to suggest inflammatory cigarette is . 2. Partial tears of the bilateral gluteus medius tendons with proximal retraction of the myotendinous junctions. Associated mild enhancing left gluteus medius medius bursitis. Reviewed, dictated and finalized at location B. IMPRESSION: 1. Mild bilateral sacral erect osteoarthritis. No findings to suggest inflammat ory cigarette is . 2. Partial tears of the bilateral gluteus medius tendons with proximal retracti on of the myotendinous junctions. Associated mild enhancing left gluteus medius medius bursitis.
== END ==
DX: M53.3 Sacrococcygeal disorders, not elsewhere classified (principal); G89.29 Other chronic pain; M47.898 Other spondylosis, sacral and sacrococcygeal region; S76.812A Strain of other specified muscles, fascia and tendons at thigh level, left thigh, initial encounter; S76.811A Strain of other specified muscles, fascia and tendons at thigh level, right thigh, initial encounter
CPT/HCPCS: 72197; A9577

== ENCOUNTER → 2023-01-22 10:37 | Outpatient (CLI) | payer OTHER, SELFPAY ==
--- NOTE | ~2023-01-22 | XR_ITS ---
AP view of the pelvis and AP and lateral views of the bilateral hips Clinical history: Pain Findings: No acute fracture or dislocation is seen. Osseous alignment is anatomic. Bilateral hip and SI joint spaces are preserved. Soft tissues are unremarkable. Impression: No significant abnormality is seen. Reviewed, dictated and finalized at location . Impression: No significant abnormality is seen.
== END ==
PROVIDERS: PCP Physician Assistant; Visit Provider Nurse Practitioner
DX: M25.551 Pain in right hip (principal); M25.552 Pain in left hip
CPT/HCPCS: 73521

== ENCOUNTER 2024-03-16 13:25 | Outpatient (CLI) | payer OTHER, SELFPAY ==
--- NOTE | ~2024-03-16 | MM_ITS ---
EXAMINATION: MM screening shorty BI w nalini HISTORY: Screening TECHNIQUE: Craniocaudal and mediolateral oblique 3-D tomosynthesis images were obtained and synthetic 2-D images were generated. CAD analysis was submitted and interpreted. COMPARISON: Comparison to multiple prior studies sequentially, with oldest reviewed study dated 01/30. BREAST PARENCHYMAL COMPOSITION: Not dense: There are scattered areas of fibroglandular density. FINDINGS: There is no evidence of suspicious mass, calcification, or architectural distortion to sugg est malignancy in either breast. There has been no suspicious interval change. IMPRESSION: 1. No mammographic evidence of malignancy. 2. Recommend routine screening mammography in one year. BI-RADS Category 1: Negative Reviewed, dictated and finalized at location B.
== END 2024-03-16 13:26 | disposition home or self-care (01) ==
LOC: MICIMG 13:25
PROVIDERS: PCP Internal Medicine; Visit Provider Internal Medicine
DX: Z12.31 Encounter for screening mammogram for malignant neoplasm of breast (principal)
CPT/HCPCS: 77063; 77067

== ENCOUNTER 2024-09-24 15:20 | Outpatient (CLI) | payer OTHER, SELFPAY ==
--- NOTE | ~2024-09-24 | XR_ITS ---
Thoracic spine: Clinical Indication: Back pain AP and lateral views were performed. No fracture is seen. There is normal alignment of the vertebrae. Mild degenerative disc changes are noted in the thoracic spine. Paravertebral soft tissues appear normal. Impression: Mild degenerative disc changes. Reviewed, dictated and finalized at location . Impression: Mild degenerative disc changes.
== END 2024-09-24 15:21 | disposition home or self-care (01) ==
LOC: MICIMG 15:21
PROVIDERS: PCP Internal Medicine; Visit Provider Internal Medicine
DX: M51.34 Other intervertebral disc degeneration, thoracic region (principal)
CPT/HCPCS: 72072

== ENCOUNTER 2024-09-27 08:42 | Outpatient (CLI) | payer OTHER, SELFPAY ==
--- NOTE | ~2024-09-27 | US_ITS ---
Limited Abdominal Sonogram: Real-time sonographic imaging of the right upper quadrant was performed. Clinical History: Abnormal serum enzyme levels Findings: The liver appears echogenic, with no evidence of mass lesion or bile duct dilatation. Main portal vein demonstrates normal direction of flow. The gallbladder is absent, compatible prior arabella cystectomy. The common bile duct measures 8 mm. The visualized pancreas, aorta, and IVC are unremark able. Impression: Diffuse fatty infiltration of liver. Status post cholecystectomy. Reviewed, dictated and finalized at location . Impression: Diffuse fatty infiltration of liver. Status post cholecystectomy.
== END 2024-09-27 08:43 | disposition home or self-care (01) ==
LOC: GOSHIMG 08:42
PROVIDERS: PCP Internal Medicine; Visit Provider Internal Medicine
DX: K76.0 Fatty (change of) liver, not elsewhere classified (principal); Z90.49 Acquired absence of other specified parts of digestive tract; R74.8 Abnormal levels of other serum enzymes
CPT/HCPCS: 76705